=== PATIENT | female | born 1975 | race Caucasian/White ===

== ENCOUNTER → 2023-05-05 | Outpatient (CLI) | payer SELFPAY ==
--- NOTE | 2023-05-05 14:51 | CT_ITS ---
STUDY: CT CHEST WITHOUT CONTRAST REASON FOR EXAM: Female, 48 years old. HYPERTENSION OVER READ ONLY RADIATION DOSAGE (If Supplied By Facility): CTDIvol = ( 12.19 ) mGy, DLP = ( 219.42 ) mGycm TECHNIQUE: Transaxial imaging was performed without the administration of intravenous contrast material. Individualized dose optimization techniques were used for this CT. COMPARISON: No relevant priors. FINDINGS: CHEST The lungs are normal. There is no demonstrated pleural abnormality. There are calcifications of the coronary arteries. Normal mediastinum. Normal hilar regions. Normal unenhanced pulmonary arteries. Normal aorta arch and descending thoracic aorta. Normal osseous structures. Fatty infiltration of the liver. CT/Limited Chest CT Cardiac Only IMPRESSION: Coronary artery calcification. Electronically Signed: Denis Joseph MD at 19:13 EST ,
--- NOTE | 2023-05-05 16:13 | CA.SCORE ---
Calcium Scoring Date of Study:: 05/05/23 Indications Indications: Family history of coronary disease and hypertension Coronary Calcium Scoring: High-resolution Computed Tomographic imaging of the chest was performed on [05/05/2023], with particular attention paid to the coronary arteries. Images from the examination were analyzed for the presence and extent of coronary artery calcification , using coronary calcium quantification software. The patient tolerated the procedure well and there were no complications. The results of the coronary calcification analysis are provided below. Findings Coronary Artery Left Main (LM): 0 Left Anterior Descending (LAD): 113 Left Circumflex (LCX): 0 Right Coronary Artery (RCA): 0 Total Agatston Score: 113 Percentile Ranking: Greater than 90th percentile Calcium Scoring Interpretation: Different methods to categorize the overall amount of coronary plaque. Overall amount CAC SIS Visual of coronary plaque P1 Mild -100 <2 1-2 vessels with mild amount of plaque P2 Moderate 101-300 3-4 1-2 vessels with moderate amount, 3 vessels with mild amount of plaque P3 Severe 301-999 5-7 3 vessels with moderate amount, 1 vessel with severe amount of plaque P4 Extensive >1000 >8 2-3 vessels with severe amount of plaque Calcium Score: Moderate: 1-2 vessels w/moderate amt, 3 vessels w/mild amt of plaque Conclusion: Moderate amount of plaque noted in 1 vessel.
--- OUTSIDE RECORDS SUMMARY | 2023-05-05 23:25 | XMS RPT_ITS | CCD ---
Author Name Unknown Address [address] [place] [address] Organization [facility] Care Team Providers Care Flotation Tender Helper Name Role Phone Maddie Early Unavailable Celia Nascimento Unavailable Gracia Pacheco Unavailable Unavailable Unavailable Unavailable Unavailable Unavailable Gracia Pacheco Unavailable Unavailable Sharona Ramirez Primary Care Provider Maddie Early DO Unavailable Celia Nascimento Unavailable Gracia Pacheco RN Unavailable Unavailable Unavailable Unavailable [employer] Unavailable Unavailable Maddie Early DO Unavailable Allergies Allergy Classification Reported Allergen(s) Allergy Type Date of Onset Reaction(s) Facility Cephalosporins (antibiotic) (2 sources) Cephalexin; Translations: [Keflex *CEPHALOSPORINS* ] Drug Allergy [facility] Work Phone: NSAIDs (2 sources) celecoxib; Translations: [Celebrex *ANALGESICS - ANTI-INFLAMMATOR Y*] Drug Allergy [facility]; [facility] Work Phone: Sulfonamides (antibiotic) (2 sources) Sulfonamides (Antibiotic); Translations: [Sulfa Drugs] Drug Allergy [facility]; [facility] Work Phone: (12 sources) celecoxib; Translations: [Celebrex *ANALGESICS - ANTI-INFLAMMATOR Y*] Drug Allergy [facility] Work Phone: (12 sources) Cephalexin; Translations: [Keflex *CEPHALOSPORINS* ] Drug Allergy [facility] Work Phone: (12 sources) Sulfonamides (Antibiotic); Translations: [Sulfa Drugs] allergy to substance [facility] Work Phone: (1 source) Sulfonamides (Antibiotic) Drug Allergy 1 Rash [facility] Medications Completed/Discontinued Medications Medication Drug Class(es) Dates Sig (Normalized) Sig (Original) acetaminophen 300 mg / codeine phosphate 30 mg oral tablet (14 sources) Opioid Agonist Start: 06-27-2008 End: 07-08-2008 take 1-2 tablets by mouth three times daily as needed TYLENOL/CODEINE #3, 300-30MG (Oral Tablet) 1-2 Tablet TID/PRN for 0 days Quantity: 30 {Tablet} Refills: 0 Ordered: 27-Jun-2008 TIARA Alexander LPN Start : 27-Jun-2008 End : 08-Jul-2008 Inactive [id number] 200 actuat albuterol 0.09 mg/actuat metered dose inhaler (14 sources) beta2-Adrenergic Agonist Start: 03-01-2011 End: 04-09-2011 take 2 puff(s) by inhalation three times daily PROVENTIL HFA, 108 (90 Base)MCG/ACT (Inhalation Aerosol Solution) 2 (two) Puff(s) tid for 0 days Quantity: 1 {Aerosol_Soln} Refills: 0 Ordered: 09-Apr-2011 Josey Mishra LPN Start : 01-Mar-2011 End : 09-Apr-2011 Inactive Problems Active Problems Problem Classification Problem Date Documented Date Episodic/Chronic Abdominal pain (16 sources) Acute abdominal pain; Translations: [Abdominal pain, acute, right upper quadrant] Onset: 12-17-2010 Resolved: 07-14-2012 01-23-2015 Episodic Allergic reactions (20 sources) Urticaria due to cold and heat; Translations: [Urticaria due to cold and heat (Renamed from Hives due to cold and heat exposure)] Resolved: 05-15-2015 05-15-2015 Episodic Anxiety disorders (20 sources) Anxiety state; Translations: [Other anxiety states] 05-23-2017 Chronic Deficiency and other anemia (20 sources) Megaloblastic anemia due to vitamin B>12< deficiency; Translations: [Other vitamin B12 deficiency anemia] 05-23-2017 Episodic Deficiency and other anemia (20 sources) Nutritional anemia; Translations: [Other vitamin B12 deficiency anemia] 11-23-2018 Episodic Deficiency and other anemia (20 sources) Deficiency and other anemia Disorders of lipid metabolism (20 sources) Hyperlipidemia; Translations: [Hyperlipidemia] 05-23-2017 Chronic Esophageal disorders (20 sources) Gastroesophageal reflux disease; Translations: [GERD (gastroesophageal reflux disease)] 05-23-2017 Chronic Essential hypertension (20 sources) Hypertensive disorder; Translations: [Benign hypertension] 05-23-2017 Chronic Genitourinary symptoms and ill-defined conditions (20 sources) Dysuria; Translations: [Urinary frequency] Resolved: 07-14-2012 05-23-2017 Episodic Heart valve disorders (15 sources) Undiagnosed cardiac murmurs; Translations: [SYMPTOMS INVOLVING CARDIOVASCULAR SYSTEM; UNDIAGNOSED CARDIAC MURMURS] 05-23-2017 Episodic Immunizations and screening for infectious disease (20 sources) Need for prophylactic vaccination and inoculation against influenza; Translations: [Needs influenza immunization] 11-23-2018 Episodic Neoplasms of unspecified nature or uncertain behavior (16 sources) Neoplasm of uncertain behavior of skin; Translations: [Neoplasm of uncertain behavior of skin] 05-23-2017 Episodic Past or Other Problems Problem Classification Problem Date Documented Date Episodic/Chronic Biliary tract disease (1 source) Biliary dyskinesia; Translations: [Biliary dyskinesia] Onset: 12-31-2010 12-31-2010 Episodic Headache; including migraine (14 sources) Headache; including migraine Unclassified (13 sources) SYMPTOMS INVOLVING CARDIOVASCULAR SYSTEM; UNDIAGNOSED CARDIAC MURMURS (785.2) Unclassified (20 sources) Cervical Spasm (728.85) Unclassified (20 sources) MACROMASTIA (611.1) 05-23-2017 Unclassified (14 sources) Pregnancies (); Translations: [Pregnancies ()] 05-23-2017 Results Test Name Value Interpretation Reference Range Facil ity Vital Signs Date Time Vital Sign Value Performing Clinician Catarina bailey 11-23-2020 09:36-0400 Body height 160.02 cm Maddie Early DO Work Phone: [facility] Work Phone: Encounters Encounter Date Encounter Type Care Provider Facility Start: 11-23-2020 End: 11-23-2020 Office outpatient visit 25 minutes Maddie Early DO Work Phone: [facility] Start: 11-23-2018 End: 11-23-2018 Office outpatient visit 25 minutes Maddie Early [facility] Start: 05-26-2017 End: 05-26-2017 Phone Encounter Maddiegregorio Early [facility] Start: 05-23-2017 End: 05-23-2017 Office outpatient visit 25 minutes Maddie Early [facility] Start: 04-19-2016 End: 04-19-2016 Office outpatient visit 25 minutes Maddie Early [facility] Start: 02-15-2016 End: 02-15-2016 Office outpatient visit 15 minutes Maddie Early [facility] Start: 01-11-2016 End: 01-11-2016 Office outpatient visit 25 minutes Maddie Early [facility] Start: 05-15-2015 End: 05-15-2015 Office outpatient visit 25 minutes Maddie Early [facility] Start: 02-02-2014 End: 02-02-2014 Office outpatient visit 15 minutes Maddie Early [facility] Start: 01-17-2014 End: 01-17-2014 Office outpatient visit 25 minutes Maddie Nneka [facility] Start: 06-04-2013 End: 06-04-2013 Patient encounter procedure Maddie Early [facility] Start: 05-27-2013 End: 05-27-2013 Patient encounter procedure Maddie Early [facility] Start: 07-14-2012 End: 07-14-2012 Patient encounter procedure Maddie Early [facility] Start: 01-02-2012 End: 01-02-2012 Patient encounter procedure Maddie Early [facility] Start: 12-31-2011 End: 12-31-2011 Phone Encounter Maddie Nneka [facility] Start: 12-05-2011 End: 12-05-2011 Patient encounter procedure Maddie Early [facility] Start: 11-19-2011 End: 11-19-2011 Patient encounter procedure Maddie Early [facility] Start: 08-29-2011 End: 08-29-2011 Patient encounter procedure Maddie Early [facility] Start: 08-06-2011 End: 08-06-2011 Patient encounter procedure Maddie Early [facility] Start: 07-14-2011 End: 07-14-2011 Phone Encounter [facility] Start: 06-03-2011 End: 06-03-2011 Patient encounter procedure Maddie Early [facility] Start: 05-01-2011 End: 05-01-2011 Patient encounter procedure Maddie Early [facility] Start: 04-16-2011 End: 04-16-2011 Office outpatient visit 25 minutes Maddie Early [facility] Start: 04-09-2011 End: 04-09-2011 Office outpatient visit 25 minutes Maddie Early [facility] Start: 03-01-2011 End: 03-01-2011 Office outpatient visit 25 minutes Maddie Early [facility] Start: 12-17-2010 End: 12-17-2010 Patient encounter procedure Maddie Early [facility] Start: 12-11-2010 End: 12-11-2010 Patient encounter procedure Maddie Early [facility] Start: 07-02-2010 End: 07-02-2010 Patient encounter procedure Maddie Early [facility] Start: 06-19-2010 End: 06-19-2010 Office outpatient visit 10 minutes Maddie Early [facility] Start: 05-02-2010 End: 05-02-2010 Patient encounter procedure Maddie Early [facility] Start: 04-13-2010 End: 04-13-2010 Patient encounter procedure Maddie Early [facility] Start: 01-02-2010 End: 01-02-2010 Patient encounter procedure Maddie Early [facility] Start: 09-01-2009 End: 09-01-2009 Patient encounter procedure Maddie Early [facility] Start: 01-31-2009 End: 01-31-2009 Patient encounter procedure Maddie Early [facility] Start: 01-12-2009 End: 01-12-2009 Office outpatient visit 15 minutes Maddie Early [facility] Start: 12-16-2008 End: 12-18-2008 Patient encounter procedure Maddie Early [facility] Start: 11-22-2008 End: 11-23-2008 Patient encounter procedure Maddie Early [facility] Start: 08-17-2008 End: 08-18-2008 Patient encounter procedure Maddie Early [facility] Start: 07-13-2008 End: 07-13-2008 Historical Summary Maddie Early [facility] Start: 07-08-2008 End: 07-08-2008 Patient encounter procedure Maddie Early [facility] Start: 06-27-2008 End: 06-27-2008 Patient encounter procedure Maddie Early [facility] Start: 06-15-2008 End: 06-15-2008 Office outpatient visit 15 minutes Maddie Early [facility] Start: 02-08-2008 End: 02-08-2008 Patient encounter procedure Malcom Cisneros Work Phone: [facility] Start: 02-08-2008 Results Only Malcom Cisneros Work Phone: [facility] Start: 01-22-2008 End: 01-22-2008 Office outpatient visit 15 minutes Maddie Early [facility] Start: 11-27-2007 End: 11-27-2007 Patient encounter procedure Maddie Early [facility] Start: 06-01-2007 End: 06-01-2007 Patient encounter procedure Maddie Early [facility] Start: 05-18-2007 End: 05-18-2007 Annotation/Addendum Maddie Early [facility] Start: 05-12-2007 End: 05-12-2007 Office outpatient visit 15 minutes Maddie Early [facility] Start: 04-29-2007 End: 04-29-2007 Office outpatient visit 25 minutes Maddie Early [facility] Start: 12-15-2005 End: 12-15-2005 Historical Summary Maddie Early [facility] Procedures Date Procedure Procedure Detail Performing Clinician Start: 01-11-2016 End: 01-11-2016 Emergency Department Summary Comments: See Note; NOTES: [facility] Medical Records Department [address] [place] [id number] Emergency Department Summary MR#: [id number] Acct: [id number] Name: LILLY BROWNING Rep #: [id number] : 1975 40 From: Jeromy Mckeon MD PCP: Maddie Early DO Status: [facility] DATE OF SERVICE: 01/08/2016 METHOD OF ARRIVAL: Private car. CHIEF COMPLAINT: Numbness. HISTORY OF PRESENT ILLNESS: A 40-year-old female reports that during the day she noticed that she was having a squeezing in pressure on the underside of her left elbow and that her left fourth and fifth fingers will go numb. She states that it would come and go, last minutes at a time and then states approximately 3:15, she notes the left side of her chin and her tongue was tingling and states that it seemed to move up her face. She denies any weakness in her arms or her legs, slurred speech, receptive or expressive aphasia. No change in her vision. No vertigo and she is not off balance. PHYSICAL EXAMINATION: GENERAL: Reveals alert woman in no acute distress. VITAL SIGNS: Stable. NEUROLOGICAL: Significant physical exam findings include the neurologic exam; the patient is alert, oriented x3. Cranial nerves II-XII are intact. She has 5/5 strength throughout. Normal sensation to light touch throughout. The remainder of the physical exam is unremarkable. Please see T-sheet for details. TEST RESULTS: The patient had a CT of the head that is normal. EKG is sinus at 81 with no acute changes. Troponin is negative. test is negative. Chem-7 is normal. CBC is remarkable for hemoglobin of 15.8, segmented neutrophils 71. EMERGENCY DEPARTMENT COURSE: The patient readily admitted that she was feeling very anxious when she got here. She was given a dose of Ativan and feels much improved. During her stay in the Emergency Department, she reports that the paresthesia in her face seemed to be radiating now to the right side of her chin, which makes an even less likely that this is a stroke. TREATMENT PLAN: The patient was discussed with Dr. Martinez who felt that she is a suitable candidate for further outpatient evaluation. She will be discharged with instructions to follow up with Dr. Early in 1-2 days for another exam. The patient reports that she does have a history of very low B12 level and questions whether this may be the cause of this. DISPOSITION: Home, stable condition. IMPRESSION: 1. Left facial paresthesias. 2. Paresthesias, left hand in ulnar nerve distribution. MD Brunilda Harley C: Maddie Garcia MD T: RAMSES JOB: [id number] 01/11/16 2215 <Electronically signed by Jeromy Mckeon MD> Date Jeromy Mckeon MD Cosigner Signature (If Indicated): Date CC: Maddie Early DO; Tarik Martinez MD Date Dictated: 01/09/161619 Date Transcribed: 01/09/161619 Microfilm Camera Operator: Signed Maddie Early Start: 01-10-2016 End: 01-10-2016 12 lead ECG Comments: See Note; NOTES: [facility] Cardiovascular Services [address] [place] [address] 12 Lead EKG 01/08/161647 MR#: [id number] Acct: [id number] Name: LILLY BROWNING Rep #: [id number] : 1975 40 From: Abhi Mondragon MD Attending Dr: Status: DEP ER Ordering Dr: Jeromy Mckeon MD Date: 01/08/16 Location: ED Sex: F C Admitted: Test Reason : Blood Pressure : / mmHG Vent. Rate : 081 BPM Atrial Rate : 081 BPM P-R Int : 162 ms QRS Dur : 090 ms QT Int : 378 ms P-R-T Axes : 054 065 049 degrees QTc Int : 439 ms Normal sinus rhythm Normal ECG Confirmed by GIANCARLO CHRISTENSEN, ABHI ([id number]), primer expeditor and drier ROSENDO BOOTH ([id number]) on 01/10/2016 12:50:06 PM Referred By: RONDA Confirmed By:ABHI MONDRAGON MD 01/10/16 1250 Date Abhi Mondragon MD CC: Maddie Early DO Date Dictated: 01/08/161647 Date Transcribed: 01/08/161647 Microfilm Camera Operator: Signed Maddie Early Start: 01-08-2016 End: 01-08-2016 Discharge Instruction Comments: See Note; NOTES: [facility] Medical Records Department [address] [place] [address] Discharge Instruction 01/08/16 1850 MR#: [id number] Acct: [id number] Name: LILLY BROWNING Rep #: [id number] : 1975 40 From: Jeromy Mckeon MD PCP: Maddie Early DO Status: DEP ER ED Disposition - Plan for ED Patient: Chief Complaint: Numb/Ting Instructions: ED Paraesthesias Referrals: Maddie Early DO [Primary Care Provider] - 2 Days What to do if you have Problems For any increased pain, shortness of breath, bleeding, nausea or vomiting, chest pain, or any unexpected problems, contact your Primary Care Provider. Call [facility] ([phone]) or report to the closest Emergency Room. Call 911 if necessary. 01/08/16 2243 <Electronically signed by Jeromy Mckeon MD> Date Jeromy Mckeon MD Cosigner Signature (If Indicated): Date CC: Maddie Newton Start: 01-08-2016 End: 01-08-2016 Brain/Head without Contrast Comments: See Note; NOTES: [facility] Imaging Services [address] [place] [address] Verdana 4d Brain/Head without Contrast MR#: [id number] Acct: [id number] Name: LILLY BROWNING Rep #: [id number] : 1975 F 40 From: Freddie Carroll MD PCP: Maddie Early DO Status: [facility] ER Study: Brain/Head without Contrast Date of Exam: 01/08/16 Exam# [id number] Ordering Dr: Jeromy Mckeon MD STUDY: CT BRAIN WITHOUT CONTRAST REASON FOR EXAM: Female, 40 years old. Left facial paresthesia. RADIATION DOSAGE (If Supplied By Facility): CTDIvol = ( 44.99 ) mGy, DLP = ( 745.49 ) mGycm TECHNIQUE: Transaxial CT imaging of the brain was performed without administration of intravenous contrast material. Individualized dose optimization techniques were used for this CT. COMPARISON: None. FINDINGS: Normal soft tissue structures. Normal calvarium. Normal size ventricles and extra-axial spaces for the patient's age. Normal white matter tracts of the cerebral hemispheres. Normal basal ganglia and thalami. Normal brainstem. Normal cerebellum. There is no intracranial hemorrhage. There are no findings of an acute ischemic infarction. Normal visualized paranasal sinuses. CT/Brain/Head without Contrast IMPRESSION: Normal unenhanced CT scan of the brain. Electronically Signed: Freddie Carroll MD at 18:23 EDT , Service support [phone], CC: Maddie Early DO; Jeromy Mckeon MD Microfilm Camera Operator: Signed Maddie Early Start: 02-08-2008 CONVERTED SURGICAL PATHOLOGY Malcom Cisneros Work Phone: Plan of Treatment Date Care Activity Detail Author Start: 11-23-2020 Procedure Education Eprescribed prescriptions (G8553) [facility]; [facility] Work Phone: Start: 11-23-2020 Provider Instructions for Treatment [facility]; [facility] Work Phone: Start: 11-23-2020 Alpha-fetoprotein serum [id number]-RNPHUMNAXOA-UKILO (36055) [facility]; [facility] Work Phone: Start: 11-23-2020 Cyanocobalamin vitamin b-12 VITAMIN B-12 (CYANOCOBALAMIN) (41721) [facility]; [facility] Work Phone: Start: 11-23-2020 25 hydroxy includes fractions if performed CALCIFIDIOL (78828) VIT D 25 [facility]; [facility] Work Phone: Start: 11-23-2020 Assay of thyroid stimulating hormone tsh TSH (18162) [facility]; [facility] Work Phone: Start: 11-23-2020 Urnls dip stick/tablet reagent auto microscopy URINALYSIS, W/ MICRO (31051) [facility]; [facility] Work Phone: Start: 11-23-2020 Urine albumin quantitative MICROALBUMIN: CREATININE RATIO (80606) AND (85341) [facility]; [facility] Work Phone: Start: 11-23-2020 Comprehensive metabolic panel METABOLIC PANEL, COMPREHENSIVE (62385) [facility]; [facility] Work Phone: Start: 11-23-2020 Lipid panel LIPID PANEL (01493) [facility]; [facility] Work Phone: Start: 11-23-2020 Blood count complete auto&auto difrntl wbc CBC W/AUTO DIFF WBC (24753) [facility]; [facility] Work Phone: Start: 11-09-2019 Influenza vaccination INFLUENZA (#1) [facility] Start: 11-23-2018 Provider Instructions for Treatment [facility] Work Phone: Start: 11-23-2018 Assay of thyroid stimulating hormone tsh TSH (43975) [facility]; [facility] Work Phone: Start: 11-23-2018 TSH Qn TSH (64914) [facility] Work Phone: Start: 11-23-2018 Urnls dip stick/tablet reagent auto microscopy URINALYSIS, W/ MICRO (93812) [facility] Work Phone: Start: 11-23-2018 Urine albumin quantitative MICROALBUMIN: CREATININE RATIO (08843) AND (58745) [facility] Work Phone: Start: 11-23-2018 Comprehensive metabolic panel METABOLIC PANEL, COMPREHENSIVE (69311) [facility] Work Phone: Start: 11-23-2018 Blood count complete auto&auto difrntl wbc CBC W/AUTO DIFF WBC (58265) [facility] Work Phone: Start: 11-23-2018 Cobalamin (Vitamin B12) [Mass/Vol] VITAMIN B-12 (CYANOCOBALAMIN) (57748) [facility] Work Phone: Start: 11-23-2018 Cyanocobalamin vitamin b-12 VITAMIN B-12 (CYANOCOBALAMIN) (43217) [facility]; [facility] Work Phone: Start: 11-23-2018 25 hydroxy includes fractions if performed CALCIFIDIOL (21963) VIT D 25 [facility] Work Phone: Start: 11-23-2018 Lipoprotein blood ilana numbers & subclasses NMR Profile (42198) [facility] Work Phone: Start: 2018 DIABETES SCREEN DIABETES SCREEN [facility] Start: 2018 LIPID SCREEN LIPID SCREEN [facility] Start: 05-26-2017 Hepatic function panel HEPATIC FUNCTION PANEL (62266) [facility] Work Phone: Start: 05-26-2017 Acute hepatitis panel HEPATITIS PANEL (12486) [facility] Work Phone: Start: 05-26-2017 Immunoassay analyte qual/semiqual multiple step ANTIMITOCHONDRIAL ANTIBODY (78212) [facility] Work Phone: Start: 05-26-2017 Assay of [id number] TRANSFERRIN (63103) [facility]; [facility] Work Phone: Start: 05-26-2017 Transferrin mass conc TRANSFERRIN (38044) [facility] Work Phone: Start: 05-26-2017 Assay of glutamyltrase gamma GGT (GAMMA GLUTAMYLTRANSFERASE) (87218) [facility]; [facility] Work Phone: Start: 05-26-2017 Gamma glutamyl transferase enzyme act/vol GGT (GAMMA GLUTAMYLTRANSFERASE) (12403) [facility] Work Phone: Start: 05-26-2017 Assay of ferritin FERRITIN (94084) [facility]; [facility] Work Phone: Start: 05-26-2017 Ferritin mass conc FERRITIN (69656) [facility] Work Phone: Start: 05-26-2017 Antibody cytomegalovirus cmv igm CMV IGM ANTBDY (31897) [facility] Work Phone: Start: 05-26-2017 Ceruloplasmin CERULOPLASMIN (51274) [facility] Work Phone: Start: 05-26-2017 Fluorescent nonnfct agt antb screen ea antibody ASM (ANTI SMOOTH MUSCLE ANTIBODY) (51424) [facility] Work Phone: Start: 05-26-2017 Microsomal antibodies each ANTI-LIVER/KIDNEY MICROSOMAL ANTIBODY (68478) [facility] Work Phone: Start: 05-26-2017 Antinuclear antibodies jessica JESSICA (ANTINUCLEAR ANTIBODY) (37450) [facility]; [facility] Work Phone: Start: 05-26-2017 Nuclear Ab IF titer (S) JESSICA (ANTINUCLEAR ANTIBODY) (46551) [facility] Work Phone: Start: 05-26-2017 Creatinine other source 24 HOUR URINE, COPPER (04061) (88196) [facility] Work Phone: Start: 05-23-2017 Procedure Education Eprescribed prescriptions (G8553) [facility] Work Phone: Start: 05-23-2017 Provider Instructions for Treatment [facility] Work Phone: Start: 04-19-2016 Provider Instructions for Treatment [facility] Work Phone: Start: 04-19-2016 25 hydroxy includes fractions if performed CALCIFIDIOL (74292) VIT D 25 [facility] Work Phone: Start: 04-19-2016 Assay of thyroid stimulating hormone tsh TSH (46425) [facility]; [facility] Work Phone: Start: 04-19-2016 Thyrotropin Qn TSH (19871) [facility] Work Phone: Start: 04-19-2016 Urnls dip stick/tablet reagent auto microscopy URINALYSIS, W/ MICRO (65326) [facility] Work Phone: Start: 04-19-2016 Urine albumin quantitative MICROALBUMIN: CREATININE RATIO (72992) AND (16482) [facility] Work Phone: Start: 04-19-2016 Comprehensive metabolic panel METABOLIC PANEL, COMPREHENSIVE (24982) [facility] Work Phone: Start: 04-19-2016 Lipid panel LIPID PANEL (63710) [facility] Work Phone: Start: 04-19-2016 Blood count complete auto&auto difrntl wbc CBC W/AUTO DIFF WBC (68518) [facility] Work Phone: Start: 02-15-2016 Provider Instructions for Treatment Continue Current Prescription(s) [facility] Work Phone: Start: 01-11-2016 Provider Instructions for Treatment [facility] Work Phone: Start: 05-15-2015 Hemoglobin A1c/Hemoglobin.total mass fraction (Bld) HGB A1C (64323) [facility] Work Phone: Start: 05-15-2015 Hemoglobin glycosylated a1c HGB A1C (08601) [facility]; [facility] Work Phone: Start: 05-15-2015 Cobalamin (Vitamin B12) mass conc VITAMIN B-12 (CYANOCOBALAMIN) (48772) [facility] Work Phone: Start: 05-15-2015 Cyanocobalamin vitamin b-12 VITAMIN B-12 (CYANOCOBALAMIN) (91636) [facility]; [facility] Work Phone: Start: 05-15-2015 25 hydroxy includes fractions if performed CALCIFIDIOL (03162) VIT D 25 [facility] Work Phone: Start: 05-15-2015 Assay of thyroid stimulating hormone tsh TSH (54688) [facility]; [facility] Work Phone: Start: 05-15-2015 Thyrotropin Qn TSH (92852) [facility] Work Phone: Start: 05-15-2015 Urnls dip stick/tablet reagent auto microscopy URINALYSIS, W/ MICRO (22056) [facility] Work Phone: Start: 05-15-2015 Urine albumin quantitative MICROALBUMIN: CREATININE RATIO (25712) AND (93758) [facility] Work Phone: Start: 05-15-2015 Comprehensive metabolic panel METABOLIC PANEL, COMPREHENSIVE (63275) [facility] Work Phone: Start: 05-15-2015 Lipid panel LIPID PANEL (66174) [facility] Work Phone: Start: 05-15-2015 Blood count complete auto&auto difrntl wbc CBC W/AUTO DIFF WBC (46514) [facility] Work Phone: Start: 05-15-2015 Patient Education Blood Pressure: high blood pressure [facility] Work Phone: Start: 05-15-2015 Procedure Education Eprescribed prescriptions (G8553) [facility] Work Phone: Start: 05-15-2015 Provider Instructions for Treatment [facility] Work Phone: Start: 02-02-2014 Patient Education Water in diet, brief version [facility] Work Phone: Start: 02-02-2014 Provider Instructions for Treatment [facility] Work Phone: Start: 01-17-2014 Patient Education High Blood Pressure (Essential Hypertension) *: blood [facility] Work Phone: Start: 01-17-2014 Procedure Education Eprescribed prescriptions (G8553) [facility] Work Phone: Start: 01-17-2014 Provider Instructions for Treatment [facility] Work Phone: Start: 06-04-2013 Provider Instructions for Treatment [facility] Work Phone: Start: 05-27-2013 Provider Instructions for Treatment [facility] Work Phone: Start: 2013 Mammography MAMMOGRAM [facility] Start: 07-14-2012 Patient Education High Blood Pressure (Essential Hypertension) *: blood pressure [facility] Work Phone: Start: 07-14-2012 aPTT Coag time (Bld) PTT (Activated Partial Thromboplastin Time) (24235) [facility] Work Phone: Start: 07-14-2012 Thromboplastin time partial plasma/whole blood PTT (Activated Partial Thromboplastin Time) (53002) [facility]; [facility] Work Phone: Start: 07-14-2012 Prothrombin time PT (Prothrobim Time) (71947) [facility]; [facility] Work Phone: Start: 07-14-2012 Prothrombin time (PT) Coag time (PPP) PT (Prothrobim Time) (52881) [facility] Work Phone: Start: 07-14-2012 Alpha-fetoprotein serum [id number] (61744) [facility] Work Phone: Start: 07-14-2012 Lipid panel LIPID PANEL (94187) [facility] Work Phone: Start: 07-14-2012 25 hydroxy includes fractions if performed Vitamin D Hydroxy (00354) [facility] Work Phone: Start: 07-14-2012 Urine albumin quantitative MICROALBUMIN: CREATININE RATIO (67080) AND (15915) [facility] Work Phone: Start: 07-14-2012 Urnls dip stick/tablet reagent auto microscopy URINALYSIS, W/ MICRO (34616) [facility] Work Phone: Start: 07-14-2012 Comprehensive metabolic panel METABOLIC PANEL, COMPREHENSIVE (36149) [facility] Work Phone: Start: 07-14-2012 Blood count manual cell count each CBC WITH MANUAL DIFF (89670) [facility] Work Phone: Start: 07-14-2012 Cobalamin (Vitamin B12) mass conc VITAMIN B-12 (CYANOCOBALAMIN) (09742) [facility] Work Phone: Start: 07-14-2012 Cyanocobalamin vitamin b-12 VITAMIN B-12 (CYANOCOBALAMIN) (79554) [facility]; [facility] Work Phone: Start: 11-19-2011 Provider Instructions for Treatment Follow up in 3 months [facility] Work Phone: Start: 11-19-2011 Blood count manual cell count each CBC WITH MANUAL DIFF (60664) [facility] Work Phone: Start: 04-16-2011 Provider Instructions for Treatment [facility] Work Phone: Start: 04-09-2011 Provider Instructions for Treatment Follow up in 1 week [facility] Work Phone: Start: 04-09-2011 25 hydroxy includes fractions if performed CALCIFEDIOL (61140) [facility] Work Phone: Start: 04-09-2011 Antinuclear antibodies jessica JESSICA (ANTINUCLEAR ANTIBODY) (04742) [facility]; [facility] Work Phone: Start: 04-09-2011 Assay of thyroid stimulating hormone tsh TSH (THYROID STIMULATING HORMONE) (97900) [facility]; [facility] Work Phone: Start: 04-09-2011 Cobalamin (Vitamin B12) mass conc VITAMIN B-12 (CYANOCOBALAMIN) (38426) [facility] Work Phone: Start: 04-09-2011 Comprehensive metabolic panel METABOLIC PANEL, COMPREHENSIVE (61548) [facility] Work Phone: Start: 04-09-2011 Cyanocobalamin vitamin b-12 VITAMIN B-12 (CYANOCOBALAMIN) (50643) [facility]; [facility] Work Phone: Start: 04-09-2011 Nuclear Ab IF titer (S) JESSICA (ANTINUCLEAR ANTIBODY) (92079) [facility] Work Phone: Start: 04-09-2011 Protein electrophoretic fractj&quantj serum Serum Protein Electrophoresis (SPEP) (15248) [facility]; [facility] Work Phone: Start: 04-09-2011 Protein mass conc Serum Protein Electrophoresis (SPEP) (37695) [facility] Work Phone: Start: 04-09-2011 Sedimentation rate rbc non-automated SED RATE ERYTHROCYTE (83794) [facility] Work Phone: Start: 04-09-2011 Thyrotropin Qn TSH (THYROID STIMULATING HORMONE) (01938) [facility] Work Phone: Start: 04-09-2011 Blood count complete automated CBC & PLATELETS (AUTO) (60327) [facility] Work Phone: Start: 03-01-2011 Provider Instructions for Treatment Follow up if no improvement or if symptoms worsen [facility] Work Phone: Start: 12-17-2010 Lipid panel LIPID PANEL (41592) [facility] Work Phone: Start: 12-17-2010 aPTT Coag time (Bld) PTT (Activated Partial Thromboplastin Time) (62755) [facility] Work Phone: Start: 12-17-2010 Thromboplastin time partial plasma/whole blood PTT (Activated Partial Thromboplastin Time) (54614) [facility]; [facility] Work Phone: Start: 12-17-2010 Prothrombin time PT (Prothrobim Time) (32502) [facility]; [facility] Work Phone: Start: 12-17-2010 Prothrombin time (PT) Coag time (PPP) PT (Prothrobim Time) (96701) [facility] Work Phone: Start: 12-11-2010 Sedimentation rate rbc non-automated SED RATE ERYTHROCYTE (25978) [facility] Work Phone: Start: 12-11-2010 C-reactive protein C-REACTIVE PROTEIN (21011) [facility]; [facility] Work Phone: Start: 12-11-2010 CRP mass conc C-REACTIVE PROTEIN (29709) [facility] Work Phone: Start: 12-11-2010 Comprehensive metabolic panel METABOLIC PANEL, COMPREHENSIVE (38255) [facility] Work Phone: Start: 12-11-2010 Blood count manual cell count each CBC WITH MANUAL DIFF (34638) [facility] Work Phone: Start: 06-19-2010 Provider Instructions for Treatment FOLLOW UP IF NO IMPROVEMENT OR IF SYMPTOMS WORSEN [facility] Work Phone: Start: 06-19-2010 Culture bacterial quanttative colony count urine URINE PATRIZIA CULTURE-ILANA COL COUNT (38979) [facility] Work Phone: Start: 05-02-2010 Assay of thyroid stimulating hormone tsh TSH (27112) [facility]; [facility] Work Phone: Start: 05-02-2010 Thyrotropin Qn TSH (75635) [facility] Work Phone: Start: 05-02-2010 Urnls dip stick/tablet reagent auto microscopy URINALYSIS, W/ MICRO (64826) [facility] Work Phone: Start: 05-02-2010 Blood count manual cell count each CBC WITH MANUAL DIFF (55807) [facility] Work Phone: Start: 05-02-2010 Comprehensive metabolic panel METABOLIC PANEL, COMPREHENSIVE (73029) [facility] Work Phone: Start: 05-02-2010 Lipid panel LIPID PANEL (92541) [facility] Work Phone: Start: 04-13-2010 Provider Instructions for Treatment [facility] Work Phone: Start: 01-02-2010 Assay of thyroid stimulating hormone tsh TSH (31149) [facility]; [facility] Work Phone: Start: 01-02-2010 Thyrotropin Qn TSH (38930) [facility] Work Phone: Start: 01-02-2010 Urnls dip stick/tablet reagent auto microscopy URINALYSIS, W/ MICRO (63094) [facility] Work Phone: Start: 01-02-2010 Blood count manual cell count each CBC WITH MANUAL DIFF (06994) [facility] Work Phone: Start: 01-02-2010 Comprehensive metabolic panel METABOLIC PANEL, COMPREHENSIVE (78733) [facility] Work Phone: Start: 01-02-2010 Lipid panel LIPID PANEL (34281) [facility] Work Phone: Start: 09-01-2009 Lipid panel LIPID PANEL (22966) [facility] Work Phone: Start: 09-01-2009 Urnls dip stick/tablet reagent auto microscopy URINALYSIS, W/ MICRO (02769) [facility] Work Phone: Start: 09-01-2009 Assay of thyroid stimulating hormone tsh TSH (43826) [facility]; [facility] Work Phone: Start: 09-01-2009 Thyrotropin Qn TSH (98843) [facility] Work Phone: Start: 09-01-2009 Blood count manual cell count each CBC WITH MANUAL DIFF (88519) [facility] Work Phone: Start: 09-01-2009 Comprehensive metabolic panel METABOLIC PANEL, COMPREHENSIVE (99186) [facility] Work Phone: Start: 01-31-2009 Provider Instructions for Treatment [facility] Work Phone: Start: 01-12-2009 Provider Instructions for Treatment FOLLOW UP IN 2 WEEKS [facility] Work Phone: Start: 12-18-2008 Provider Instructions for Treatment Antidepressant Usage [facility] Work Phone: Start: 12-16-2008 Provider Instructions for Treatment Diet and Exercise [facility] Work Phone: Start: 11-22-2008 Protein mass conc (U) Urine Protein Electrophoresis (UPEP) (50232) [facility] Work Phone: Start: 11-22-2008 Protein electrophoretic fractj&quantj serum [facility]; [facility] Work Phone: Start: 11-22-2008 Protein mass conc Serum Protein Electrophoresis (SPEP) (58987) [facility] Work Phone: Start: 11-22-2008 Sedimentation rate rbc non-automated SED RATE ERYTHROCYTE (61733) [facility] Work Phone: Start: 11-22-2008 Cyclic citrullinated peptide antibody CCP ANTIBODY (62871) [facility] Work Phone: Start: 11-22-2008 C-reactive protein C-REACTIVE PROTEIN (43754) [facility]; [facility] Work Phone: Start: 11-22-2008 CRP mass conc C-REACTIVE PROTEIN (98415) [facility] Work Phone: Start: 11-22-2008 Rheumatoid factor quantitative RHEUMATOID FACTOR-QUANT (43270) [facility] Work Phone: Start: 11-22-2008 Comprehensive metabolic panel METABOLIC PANEL, COMPREHENSIVE (65858) [facility] Work Phone: Start: 11-22-2008 Antinuclear antibodies jessica JESSICA (ANTINUCLEAR ANTIBODY) (21957) [facility]; [facility] Work Phone: Start: 11-22-2008 Nuclear Ab IF titer (S) JESSICA (ANTINUCLEAR ANTIBODY) (11331) [facility] Work Phone: Start: 11-22-2008 Cold agglutinin titer COLD AGGLUTININ TITER (74664) [facility] Work Phone: Immunizations Immunization Date Immunization Notes Care Provider Pradip cox 03-10-2020 COVID-Pfizer (30 MCG/0.3 ML) Maddie Early DO Work Phone: [facility]; [facility] Work Phone: 12-16-2008 influenza, seasonal, injectable Maddie Early [facility] Work Phone: Payers Date Payer Category Payer Policy ID Unknown [facility] Social History Date Type Detail Facility Alcohol Use Never smoker [facility] Work Phone: Instructions Note Date & Type Note Facility [facility]; [facility] Work Phone: Instructions Note Date & Type Note Facility [facility]; [facility] Work Phone: Instructions Note Date & Type Note Facility [facility]; [facility] Work Phone: Instructions Note Date & Type Note Facility [facility]; [facility] Work Phone: Family History Unknown Family Member Name Dates Details Aunt: Spine Cancer Status:Active Mother Comments:Fibroids Status:Active Paternal Grandfather Comments:Heart Disease Status:Active Unknown Family Member Name Dates Details Aunt: Spine Cancer Status:Active Mother Comments:Fibroids Status:Active Paternal Grandfather Comments:Heart Disease Status:Active Unknown Family Member Name Dates Details Aunt: Spine Cancer Status:Active Mother Comments:Fibroids Status:Active Paternal Grandfather Comments:Heart Disease Status:Active Unknown Family Member Name Dates Details Aunt: Spine Cancer Status:Active Mother Comments:Fibroids Status:Active Paternal Grandfather Comments:Heart Disease Status:Active Unknown Family Member Name Dates Details Aunt: Spine Cancer Status:Active Mother Comments:Fibroids Status:Active Paternal Grandfather Comments:Heart Disease Status:Active Unknown Family Member Name Dates Details Aunt: Spine Cancer Status:Active Mother Comments:Fibroids Status:Active Paternal Grandfather Comments:Heart Disease Status:Active Unknown Family Member Name Dates Details Aunt: Spine Cancer Status:Active Mother Comments:Fibroids Status:Active Paternal Grandfather Comments:Heart Disease Status:Active Unknown Family Member Name Dates Details Aunt: Spine Cancer Status:Active Mother Comments:Fibroids Status:Active Paternal Grandfather Comments:Heart Disease Status:Active Instructions Name Dates Details Non-smoker : How to access h ealth information online Indication:Non-smoker Non-smoker : How to access h ealth information online - Detail Indication:Non-smoker Non-smoker : Patient Instruc tions Indication:Non-smoker BMI 35.0-35.9,adult : How to access health information online Indication:BMI 35.0-35.9,adult BMI 35.0-35.9,adult : How to access health information online - Detail Indication:BMI 35.0-35.9,adult BMI 35.0-35.9,adult : Patien t Instructions Indication:BMI 35.0-35.9,adult Vitamin D deficiency, unspec ified : Patient Instructions Indication:Vitamin D deficiency, unspecified Hypertension, benign : How t o access health information online Indication:Hypertension, benign Hypertension, benign : How t o access health information online - Detail Indication:Hypertension, benign Hypertension, benign : Patie nt Instructions Indication:Hypertension, benign Name Dates Details Non-smoker : How to access h ealth information online Indication:Non-smoker Non-smoker : How to access h ealth information online - Detail Indication:Non-smoker Non-smoker : Patient Instruc tions Indication:Non-smoker BMI 35.0-35.9,adult : How to access health information online Indication:BMI 35.0-35.9,adult BMI 35.0-35.9,adult : How to access health information online - Detail Indication:BMI 35.0-35.9,adult BMI 35.0-35.9,adult : Patien t Instructions Indication:BMI 35.0-35.9,adult Vitamin D deficiency, unspec ified : Patient Instructions Indication:Vitamin D deficiency, unspecified Hypertension, benign : How t o access health information online Indication:Hypertension, benign Hypertension, benign : How t o access health information online - Detail Indication:Hypertension, benign Hypertension, benign : Patie nt Instructions Indication:Hypertension, benign Name Dates Details How to access health informa tion online Indication:Non-smoker Start:23-May-2017 Instruction Type:Patient Education How to access health informa tion online - Detail Indication:Non-smoker Start:23-May-2017 Instruction Type:Patient Education Patient Instructions Indication:Non-smoker Start:23-May-2017 Instruction Type:Provider Instructions for Treatment How to access health informa tion online Indication:BMI 35.0-35.9,adult Start:19-Apr-2016 Instruction Type:Patient Education How to access health informa tion online - Detail Indication:BMI 35.0-35.9,adult Start:19-Apr-2016 Instruction Type:Patient Education Patient Instructions Indication:BMI 35.0-35.9,adult Start:19-Apr-2016 Instruction Type:Provider Instructions for Treatment How to access health informa tion online Indication:Non-smoker Start:15-Feb-2016 Instruction Type:Patient Education How to access health informa tion online - Detail Indication:Non-smoker Start:15-Feb-2016 Instruction Type:Patient Education Patient Instructions Indication:Non-smoker Start:15-Feb-2016 Instruction Type:Provider Instructions for Treatment Patient Instructions Indication:Vitamin D deficiency, unspecified Start:11-Jan-2016 Instruction Type:Provider Instructions for Treatment How to access health informa tion online Indication:Hypertension, benign Start:15-May-2015 Instruction Type:Patient Education How to access health informa tion online - Detail Indication:Hypertension, benign Start:15-May-2015 Instruction Type:Patient Education Patient Instructions Indication:Hypertension, benign Start:15-May-2015 Instruction Type:Provider Instructions for Treatment Patient Instructions Indication:Hypertension, benign Start:17-Jan-2014 Instruction Type:Provider Instructions for Treatment Patient Instructions Indication:Hypertension, benign Start:14-Jul-2012 Instruction Type:Provider Instructions for Treatment Patient Instructions Indication:Hypertension, benign Start:19-Nov-2011 Instruction Type:Provider Instructions for Treatment Name Dates Details How to access health informa tion online Indication:Hypertension, benign Start:23-Nov-2018 Instruction Type:Patient Education How to access health informa tion online - Detail Indication:Hypertension, benign Start:23-Nov-2018 Instruction Type:Patient Education Patient Instructions Indication:Hypertension, benign Start:23-Nov-2018 Instruction Type:Provider Instructions for Treatment How to access health informa tion online Indication:Non-smoker Start:23-May-2017 Instruction Type:Patient Education How to access health informa tion online - Detail Indication:Non-smoker Start:23-May-2017 Instruction Type:Patient Education Patient Instructions Indication:Non-smoker Start:23-May-2017 Instruction Type:Provider Instructions for Treatment How to access health informa tion online Indication:BMI 35.0-35.9,adult Start:19-Apr-2016 Instruction Type:Patient Education How to access health informa tion online - Detail Indication:BMI 35.0-35.9,adult Start:19-Apr-2016 Instruction Type:Patient Education Patient Instructions Indication:BMI 35.0-35.9,adult Start:19-Apr-2016 Instruction Type:Provider Instructions for Treatment How to access health informa tion online Indication:Non-smoker Start:15-Feb-2016 Instruction Type:Patient Education How to access health informa tion online - Detail Indication:Non-smoker Start:15-Feb-2016 Instruction Type:Patient Education Patient Instructions Indication:Non-smoker Start:15-Feb-2016 Instruction Type:Provider Instructions for Treatment Patient Instructions Indication:Vitamin D deficiency, unspecified Start:11-Jan-2016 Instruction Type:Provider Instructions for Treatment How to access health informa tion online Indication:Hypertension, benign Start:15-May-2015 Instruction Type:Patient Education How to access health Sungevitya tion online - Detail Indication:Hypertension, benign Start:15-May-2015 Instruction Type:Patient Education Patient Instructions Indication:Hypertension, benign Start:15-May-2015 Instruction Type:Provider Instructions for Treatment Patient Instructions Indication:Hypertension, benign Start:17-Jan-2014 Instruction Type:Provider Instructions for Treatment Patient Instructions Indication:Hypertension, benign Start:14-Jul-2012 Instruction Type:Provider Instructions for Treatment Patient Instructions Indication:Hypertension, benign Start:19-Nov-2011 Instruction Type:Provider Instructions for Treatment Additional Source Comments Source Comments (unrecognize d section and content) In the event this informatio n is protected by the Federal Confidentiality of Alcohol and Drug Abuse Patient Records regulations: The Federal rules restrict any use of the information to criminally investigate or prosecute any alcohol or drug abuse patient.[facility] FOR RECORDS PERTAINING TO PATIENTS WHO ARE OR HAVE BEEN ENROLLED IN A CHEMICAL DEPENDENCY/SUBSTANCEABUSE PROGRAM, SOME INFORMATION MAY BE OMITTED. This clinical summary was aggregated from multiple sources. Caution should be exercised in using it in the provision of clinical care. This summary normalizes information from multiple sources, and as a consequence, information in this document may materially change the coding, format and clinical context of patient data. In addition, data may be omitted in some cases. CLINICAL DECISIONS SHOULD BE BASED ON THE PRIMARY CLINICAL RECORDS. [employer] [facility]. provides no warranty or guarantee of the accuracy or completeness of information in this document.
== END | disposition home or self-care (01) ==
PROVIDERS: PCP Family Medicine; Referring Provider Family Medicine; Visit Provider Family Medicine
DX: I10 Essential (primary) hypertension (principal)
CPT/HCPCS: 75571; 76380

== ENCOUNTER → 2024-06-25 | Outpatient (CLI) | payer SELFPAY ==
--- NOTE | 2024-06-25 08:04 | BI_ITS ---
EXAM: SCRN MAMM (CAD)W/REFUGIO BILAT 06/25/2024 CLINICAL HISTORY: F, Age 49 y/o, annual screening mammography. No family history of breast cancer. TECHNIQUE: Bilateral Diagnostic digital breast tomosynthesis with 2D and 3D images. Computer aided detection. COMPARISON: Prior exam(s) dated 08/16/2009. FINDINGS: TISSUE DENSITY: The breast tissue is composed of scattered area of fibroglandular density. Bilateral Breast Mammographic Findings: No significant masses, calcifications or other abnormalities are identified. BI/SCRN MAMM (CAD)W/REFUGIO BILAT IMPRESSION: Right Breast: BIRADS 1 NEGATIVE. Left Breast: BIRADS 1 NEGATIVE. OVERALL FINAL ASSESSMENT: BIRADS 1 NEGATIVE. RECOMMENDATION: Routine annual follow-up in 1 Year A letter with findings and recommendations will be mailed to the patient. Reading Location: [id number]
== END | disposition home or self-care (01) ==
LOC: OPBI 07:52
PROVIDERS: PCP Family Medicine
DX: Z12.31 Encounter for screening mammogram for malignant neoplasm of breast (principal)
CPT/HCPCS: 77063; 77067